=== PATIENT | male | born 1965 | race Caucasian/White ===

== ENCOUNTER → 2021-07-08 | Day surgery (SDC) | payer OTHER ==
[~2021-07-08] VITALS: Ht 170.2 cm; Wt 88.5 kg
[~2021-07-08] MED LIST: ASPIRIN325 MG PO; CRESTOR40 MG PO; LOSARTAN POTASS50 MG PO; NIACIN ER1000 MG PO; NORCO 5-325 TA1 EACH PO; PRILOSEC20 MG PO
[2021-07-08 07:13] LABS: BUN/CREAT RATIO (CALC) 19.8 RATIO; CREATININE 0.81 mg/dL (0.67-1.17)
== END | disposition home or self-care (01) ==
LOC: FAS 06:03
PROVIDERS: Anesthesiology
DX: M65.841 Other synovitis and tenosynovitis, right hand (principal); I10 Essential (primary) hypertension; I51.9 Heart disease, unspecified
CPT/HCPCS: 36415; 80048; 93005; J1200; J1885; J2250; J2405; J2704; J3010; J7120